=== PATIENT | male | born 1995 | race Caucasian/White ===

== ENCOUNTER 2017-11-03 10:11 | Inpatient (IN) | payer OTHER ==
[~2017-11-03] VITALS: Ht 180.3 cm; Wt 74.8 kg
--- NOTE | 2017-11-03 22:00 | NUR ---
Pre- Assessment Patient met in intake office, he is a 22 yr old male who has been admitted to [facility] for a medically supervised withdrawal from ETOH ( beer), benzodiazepines ( Klonopin) and Opiates ( Suboxone). 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 Vital Signs: BP 128/66, HR 88, RR 16, 02 Sats 94%. Patient states he last had Alcohol on the plane - 2 cocktails approx 3 hours ago, Suboxone 8mg SL this AM 11/03/17 and Klonopin 4mg PO this am 11/03/17. he states he also smoked 5 bowls of Marijuana this AM. patient states he is not yet in withdrawal from Suboxone but is starting to feel withdrawal symptoms from the ETOH and Benzodiazepines, CIWA 18. Patient educated on policy of controlled medications and that if he brought any they will be confiscated, patient understood and agreed. patient will be admitted to the unit and assessment will continue when he is on the floor, room 316 under the care of Dr Saldana.
--- NOTE | 2017-11-03 22:35 | NUR ---
PRN Zofran and Maalox Zofran 4mg SL given for N/V Maalox 30cc PO given for Dyspepsia
[2017-11-03] MEDS ORDERED: BREX3TAB PO (22:50)
[2017-11-03] MEDS ORDERED: BUPR1TAB40 SL (22:50)
[2017-11-03] MEDS ORDERED: PROP80CA PO (22:50)
[2017-11-03] MEDS ORDERED: ALBU8.5H8 IH (22:50)
[2017-11-03] MEDS ORDERED: CLON1TAB5 PO (22:50)
[2017-11-03] MEDS ORDERED: diphenhydrAMINE 50 MG CAPSULE PO PRN (23:00)
[2017-11-03] MEDS ORDERED: LORAZEPAM 1 MG TABLET PO PRN ×2 (23:00)
[2017-11-03] MEDS ORDERED: THIAMINE HCL 200 MG/2 ML VIAL IM ONE (23:00)
[2017-11-03] MEDS ORDERED: ONDANSETRON ODT 4 MG TAB.RAPDIS SL PRN (23:00)
[2017-11-03] MEDS ORDERED: MAG HYDROX/AL HYDROX/SIMETH 30 ML LIQUID UDC PO PRN (23:00)
[2017-11-03] MEDS ORDERED: MAGNESIUM HYDROXIDE 30 ML LIQUID UDC PO PRN (23:00)
[2017-11-03] MEDS ORDERED: LORAZEPAM 2 MG/1 ML VIAL IM PRN (23:00)
[2017-11-03] MEDS ORDERED: LOPERAMIDE HCL 2 MG CAPSULE PO PRN ×2 (23:00)
[2017-11-03] MEDS ORDERED: ONDANSETRON 4 MG/2 ML VIAL IM PRN (23:00)
[2017-11-03] MEDS ORDERED: MIRALAX 17 GM POWD.PACK PO PRN (23:00)
[2017-11-03] MEDS ORDERED: ACETAMINOPHEN 325 MG TABLET PO PRN (23:00)
[2017-11-03] MEDS ORDERED: BUPRENORPHINE HCL 2 MG TAB.SUBL SL PRN (23:00)
[2017-11-03] MEDS ORDERED: DICYCLOMINE HCL 20 MG TABLET PO PRN (23:00)
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
[2017-11-03] MEDS ORDERED: DIAZEPAM 10 MG TABLET PO PRN ×2 (23:30)
[2017-11-03] MEDS ORDERED: DIAZEPAM 5 MG TABLET PO PRN (23:30)
[2017-11-03 23:31] LABS: *AMPHETAMINE, URINE POSITIVE (NEGATIVE); *BARBITURATE, URINE NEGATIVE (NEGATIVE); *CANNABINOID, URINE POSITIVE (NEGATIVE); *COCCAINE, URINE NEGATIVE (NEGATIVE); *OPIATE, URINE NEGATIVE (NEGATIVE); *PHENCYCLIDINE SCREEN,URINE NEGATIVE (NEGATIVE)
--- NOTE | 2017-11-03 23:35 | NUR ---
PRN Reassess N/V Ceased, Zofran effective Dyspepsia resolved, Maalox effective
--- NOTE | 2017-11-03 23:40 | NUR ---
PRN Valium 20mg PO PRN given for CIWA 18 patients withdrawal symptoms include extreme restlessness, hyper sensitivity,fidgeting and agitation.
--- NOTE | 2017-11-03 23:40 | NUR ---
COWS 7/CIWA 18 Patient presents with increased anxiety, restlessness, bilateral hand tremors, he is hyper vigilant and antsy. Valium 20mg PO PRN given
[2017-11-04] VITALS: BP 127/80
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
--- NOTE | 2017-11-04 00:40 | NUR ---
PRN reassess Patient states that Valium 20mg PO had no effect on his anxiety, but patient is calm and cooperative but hyper focused on going out to smoke cigarettes, will continue to monitor. Addendum: 11/04/17 at 0220 by ERMELINDA WHITMORE RN 39- DENIS ( 18)
[2017-11-04 02:10] LABS: BASOPHILS # (AUTO) 0.1 K/uL (0.0-8.0); BASOPHILS % (AUTO) 0.5 % (0.0-2.0); EOSINOPHILS # (AUTO) 0.3 K/uL (0.0-0.7); EOSINOPHILS % (AUTO) 3.1 % (0.0-7.0); HEMATOCRIT 42.3 % (36.7-47.1); HEMOGLOBIN 14.2 g/dL (12.5-16.3); LYMPHOCYTES # (AUTO) 4.6 K/uL (20.0-40.0); LYMPHOCYTES % (AUTO) 42.5 % (20.5-51.5); MEAN CORPUSCULAR HEMOGLOBIN 30.6 uug (23.8-33.4); MEAN CORPUSCULAR HGB CONC 34 g/dL (32.5-36.3); MONOCYTES # (AUTO) 0.8 K/uL (2.0-10.0); MONOCYTES % (AUTO) 7.4 % (0.0-11.0); NEUTROPHILS # (AUTO) 5.1 K/uL (1.8-8.9); NEUTROPHILS % (AUTO) 46.5 % (38.5-71.5); PLATELET COUNT (AUTO) 234 K/uL (152-348); RED BLOOD CELL COUNT(AUTO) 4.65 MIL/uL (4.06-5.63); WHITE BLOOD COUNT (AUTO) 10.9 K/uL (3.6-10.2)
[2017-11-04 02:36] LABS: ETHANOL < 3 MG/DL (0-0)
[2017-11-04 02:41] LABS: ALANINE AMINOTRANSFERASE 28 U/L (16-63); ALKALINE PHOSPHATASE 80 U/L (50-136); AMYLASE 65 U/L (25-115); ASPARTATE AMINOTRANSFERASE 21 U/L (15-37); BILIRUBIN,TOTAL 0.4 mg/dL (0.2-1.0); CARBON DIOXIDE 27 mmol/L (21-32); CHLORIDE 101 mmol/L (98-107); CREATININE 0.8 mg/dL (0.6-1.3); GLUCOSE 108 mg/dL (74-106); LIPASE 90 U/L (73-393); MAGNESIUM 1.9 mg/dL (1.8-2.4); POTASSIUM 3.7 mmol/L (3.5-5.1); TOTAL PROTEIN, SERUM 7.7 g/dL (6.4-8.2); UREA NITROGEN, BLOOD 11 mg/dL (7-18)
[2017-11-04 02:56] LABS: THYROID STIMULATING HORMONE 4.107 mIU/mL (0.358-3.740)
--- NOTE | 2017-11-04 04:00 | NUR ---
COWS/CIWA Deferred due to sleep VS refused due to patient request
--- NOTE | 2017-11-04 06:55 | NUR ---
End of shift : Patient is a 22 yr old male who was admitted to [facility] on 11/03/17 for a medically supervised withdrawal from ETOH ( Beer), Benzos ( Klonopin) and Opiates ( Suboxone) ( he also states he used methamphetamines and Marijuana) UDS positive for Amphetamines and Cannaboids. He will start a 5 day Subutex and 5 day Phenobarbital taper today. PRN medications given on PM shift : Maalox, Zofran and Valium. Withdrawal symptoms include N/V, restlessness, loose thoughts, increased anxiety , gross bilateral hand tremors and dyspepsia, He had a fluid intake of 355ml, 2 voids and 0 BM, his last COWS was 7 @ 0000 and CIWA 16 @ 0100, he slept for 4 hours , Continue to follow MD plan of care and offer support and encouragement as needed. Endorsed to day shift.
[2017-11-04] MEDS ORDERED: 6 DAY PHENOBARBITAL TAPER -SERENITY PROTOCOL PO PRN (07:15)
--- NOTE | 2017-11-04 07:30 | NUR ---
START OF SHIFT NOTE Received report from night nurse, 22 year old male admitted for ETOH/Benzo/ withdrawal and patient schedule to start 5 days phenobarbital/Subutex taper. Per endorsement patient received PRN Valium, Maalox, Zofran, slept for 4 hours and last CIWA-16/CIWA-7. Received patient alert awake oriented x4, anxious, agitated, restless, fatigue, nausea, chills, bilateral hand tremors noted. Patient due for schedule medications. Breathing normal no SOB noted. Respiration even non labored. All safety measures in place call light within reach. Will cont to monitor.
[2017-11-04] MEDS ORDERED: 5 DAY TAPER BUPRENORPHINE -SERENITY PROTOCOL SL PRN (07:45)
[2017-11-04 08:00] VITALS: BP 111/68
[2017-11-04] MEDS: THIAMINE HCL 100 MG TABLET PO SCH (08:39)
[2017-11-04] MEDS: MULTIVITAMINS,THERAPEUTIC TABLET PO SCH (08:40)
[2017-11-04] MEDS: FOLIC ACID 1 MG TABLET PO SCH (08:40)
[2017-11-04] MEDS ORDERED: TUBERCULIN,PURIF.PROT.DERIV. 5 TU/0.1 ML TEST ID ONE (09:00)
[2017-11-04] MEDS: PHENOBARBITAL 60 MG TABLET PO SCH ×3 (09:40→20:45)
[2017-11-04] MEDS: BUPRENORPHINE HCL 2 MG TAB.SUBL SL SCH ×4 (09:40→20:46)
--- NOTE | 2017-11-04 09:40 | NUR ---
CIWA/COWS ASSESSMENT CIWA-13, COWS-13, patient presented with labile facial expression, anxiety, agitation, fatigue, restless, chills, sweats, runny nose, nausea, light headed, bilateral hand tremors noted. Patient was given his scheduled medications.
[2017-11-04 12:00] VITALS: BP 126/60
--- NOTE | 2017-11-04 12:29 | NUR ---
CIWA/COWS ASSESSMENT CIWA-12, COWS-11, patient is sitting in his room stated that he is feeling tired. Patient presented with flushed and sad facial expression, runny nose, anxious, restless, fatigue, nausea, irritable, bilateral hand tremors. patient received scheduled Subutex and due for schedule phenobarbital. All safety measures in place.
--- NOTE | 2017-11-04 13:46 | NUR ---
Client was prompted to attend group therapy.
[2017-11-04 16:00] VITALS: BP 123/67
--- NOTE | 2017-11-04 16:42 | NUR ---
CIWA/COWS ASSESSMENT CIWA-13, COWS-12, patient continues exhibited with sad facial expression, chills, mild body aches, anxious, agitated, restless, fatigue, nausea, irritable, bilateral hand tremors. All safety measures in place.
--- NOTE | 2017-11-04 19:05 | NUR ---
END OF SHIFT NOTE Gave report to night nurse, patient started on Subutex and Phenobarbital taper tolerating well. Patient Presented with anxiety, restless, agitation, anhedonia, flushed face, body aches, nausea, sad facial expression, patient received scheduled medication no PRN were given during shift. Patient was seen by psychiatrist with new order to continues home medications tonight, patient aware. Patient attended groups activities interacting with peers. Patient has good appetite. All safety measures in place. patient endorse to night nurse in stable condition.
--- NOTE | 2017-11-04 19:30 | NUR ---
End of shift : Patient is a 22 yr old male who was admitted to [facility] on 11/03/17 for a medically supervised withdrawal from ETOH ( Beer), Benzos ( Klonopin) and Opiates ( Suboxone) ( he also states he used methamphetamines and Marijuana) He has started a 5 day Subutex and 5 day Phenobarbital taper today. No PRN medications given on day shift . Withdrawal symptoms include N/V, restlessness, loose thoughts, increased anxiety , gross bilateral hand tremors, his last COWS was 12 @ 1600 and WA 13 @ 1600,Continue to follow MD plan of care and offer support and encouragement as needed. Addendum: 11/04/17 at 2014 by ERMELINDA WHITMORE RN Correction: * START of shift note
[2017-11-04 20:00] VITALS: BP 120/77
--- NOTE | 2017-11-04 20:37 | NUR ---
COWS 13/CIWA 15 Patient's withdrawal symptoms present as increased anxiety/Irritability, difficulty thinking clearly, nervousness, worried expression and restlessness. Scheduled 60mg PO Phenobarbital, 4mg SL Subutex and 3mg Rexulti PO
[2017-11-05] VITALS: BP 124/74
--- NOTE | 2017-11-05 | NUR ---
COWS 11/ CIWA 14 Patient presents with restlessness, anxiety, nervousness , diaphoresis and chills.
--- NOTE | 2017-11-05 04:00 | NUR ---
COWS/CIWA Deferred due to sleep. VS refused per patient request to sleep through the night, breathing even and unlabored, RR 14
--- NOTE | 2017-11-05 06:45 | NUR ---
End of shift : Patient is a 22 yr old male who was admitted to [facility] on 11/03/17 for a medically supervised withdrawal from ETOH ( Beer), Benzos ( Klonopin) and Opiates ( Suboxone) ( he also states he used methamphetamines and Marijuana). He has been placed on a 5 day Subutex and 5 day Phenobarbital taper and today is day 2. NO PRN medications were required or requested on this shift. Withdrawal symptoms include restlessness, loose thoughts, increased anxiety , gross bilateral hand tremors and agitation, He had a fluid intake of 1355 ml, 1 voids and 0 BM, his last COWS was 11 @ 0000 and CIWA 14 @ 0000, he slept for 5 hours , Continue to follow MD plan of care and offer support and encouragement as needed. Endorsed to day shift.
[2017-11-05 08:00] VITALS: BP 100/65
--- NOTE | 2017-11-05 08:05 | NUR ---
START OF SHIFT: Receive Pt A/O X 4. Tremors to BUE noted. He presents with anxious mood and congruent affect. He reports anxiety,restlessness,sweats and intermittent chills. He also reports body aches. Pheno/Subutex taper in progress top manage s/s of w/d. CI 10. COWS 14. He reports sleeping fairly with a fair appetite. Encouraged increased fluids to assist in facilitating detox process. Encouraged group attendance to improve coping skills and prevent relapse. Will continue to monitor and offer support. Addendum: 11/05/17 at 0846 by YANA DUBOIS RN CORRECTION: COWS
[2017-11-05 08:09] LABS: EOSINOPHILS # (AUTO) 0.4 K/uL (0.0-0.7); HEMOGLOBIN 14.9 g/dL (12.5-16.3); LYMPHOCYTES # (AUTO) 3.6 K/uL (20.0-40.0); MONOCYTES # (AUTO) 0.5 K/uL (2.0-10.0)
[2017-11-05 08:16] LABS: BASOPHILS % (AUTO) 0.5 % (0.0-2.0); EOSINOPHILS % (AUTO) 5.2 % (0.0-7.0); HEMATOCRIT 44.9 % (36.7-47.1); LYMPHOCYTES % (AUTO) 49.5 % (20.5-51.5); MEAN CORPUSCULAR HEMOGLOBIN 30.3 uug (23.8-33.4); MEAN CORPUSCULAR HGB CONC 33 g/dL (32.5-36.3); MEAN CORPUSCULAR VOLUME 91.4 fL (73.0-96.2); MONOCYTES % (AUTO) 6.9 % (0.0-11.0); NEUTROPHILS # (AUTO) 2.8 K/uL (1.8-8.9); NEUTROPHILS % (AUTO) 37.9 % (38.5-71.5); PLATELET COUNT (AUTO) 216 K/uL (152-348); RED BLOOD CELL COUNT(AUTO) 4.91 MIL/uL (4.06-5.63)
[2017-11-05 08:19] LABS: WHITE BLOOD COUNT (AUTO) 7.3 K/uL (3.6-10.2)
[2017-11-05] MEDS: PHENOBARBITAL 60 MG TABLET PO SCH ×4 (08:51→21:53)
[2017-11-05] MEDS: BUPRENORPHINE HCL 2 MG TAB.SUBL SL SCH ×3 (08:52→21:55)
[2017-11-05] MEDS: MULTIVITAMINS,THERAPEUTIC TABLET PO SCH (08:52)
[2017-11-05] MEDS: THIAMINE HCL 100 MG TABLET PO SCH (08:52)
[2017-11-05] MEDS: FOLIC ACID 1 MG TABLET PO SCH (08:52)
[2017-11-05 10:56] LABS: HEPATITIS B SURFACE AG Negative (Negative)
[2017-11-05 12:00] VITALS: BP 118/62
--- NOTE | 2017-11-05 12:20 | NUR ---
COWS 12 CIWA 14. He c/o anxiety,body aches,restlessness,sweats,tremors chills and irritability.
[2017-11-05 16:00] VITALS: BP 116/65
--- NOTE | 2017-11-05 18:50 | NUR ---
END OF SHIFT: Pt continues on Pheno/Sub taper to manage s/s of w/d which include anxiety,restlessness,sweats ,chills and irritability.COWS 9 CIWA 10. He stayed in bed and slept on and off most of shift. He states the detox meds are effective. No PRNS given. Pt was compliant with increased fluids and stated he would try and attend groups tomorrow when he feels better.
[2017-11-05 20:00] VITALS: BP 103/66
--- NOTE | 2017-11-05 20:00 | NUR ---
CIWA and COWS Assessment Patient was presenting with body aches, anxiety and sweats and chills. Patients CIWA 10 and COWS 8. Patient did not want any PRN medications. Patient verbalized understanding of reporting signs and symptoms of withdrawal. Respirations are even and unlabored. Safety measures in place, bed locked in low position, side rails up x2, and call light within reach. Will continue to monitor. Addendum: 11/06/17 at 0743 by DAMIEN JASSO RN Correction:Double charting.
--- NOTE | 2017-11-05 20:00 | NUR ---
Start of shift Patient is a 22 year old male patient admitted on 11/03/2017 for medically supervision of ETOH, Benzos and opiates withdrawal. Patients last COWS=9 and CIWA=10. Patient is on a 5 day Subutex and 5 day Phenobarbital taper. Per endorsement patient did not have any PRN medications. Patient is on fall and seizure precautions. Upon rounds patient was noted in room lying in bed. Reviewed 2100 medications with patient and he verbalized understanding. Patient presents depressed, withdrawal, disheveled, body aches in joints, anxiety and agitation. Respirations are even and unlabored. Patient denies any pain. Safety measures in place, bed locked in low position, side rails up x2, and call light within reach. Will continue to monitor.
[2017-11-06] VITALS: BP 103/66
--- NOTE | 2017-11-06 | NUR ---
CIWA and COWS Deferred Patient was noted in bed resting with eyes closed, breathing even and unlabored. Per protocol COWS and CIWA is to be assessed while awake. Safety measures in place, bed locked in low position, side rails up x2, and call light within reach. Will continue to monitor.
[2017-11-06 04:00] VITALS: BP 109/78
[2017-11-06 04:08] LABS: TRIIODOTHYRONINE, FREE 4.9 pg/mL (2.0-4.4)
--- NOTE | 2017-11-06 07:24 | NUR ---
End of shift Patient is a 22 year old male patient admitted on 11/03/2017 for medically supervision of ETOH, Benzos and opiates withdrawal. Patients last COWS=8 and CIWA=10. Patient is on a 5 day Subutex and 5 day Phenobarbital taper. Patient did not have any PRN medications during this shift. Patient is on fall and seizure precautions. Patient slept for 11 hours and had a total intake of 1,291 ml. Patient voided x3 and had no bowel movements. Respirations are even and unlabored. Safety measures in place, bed locked in low position, side rails up x2, and call light within reach. Will endorse to day shift
[2017-11-06 08:00] VITALS: BP 104/54
--- NOTE | 2017-11-06 08:00 | NUR ---
Start of Shift Notes/COWS/CIWA Assessment: Endorsement received from night nurse. Patient is a 22 year old male admitted for BZO/ETOH and opiate withdrawal who was placed on a 5-day Subutex and 5-day Phenobarbital taper as ordered. No adverse reactions noted. Per night report, patient was not given any PRNs. Slept for 11 hours. Last COWS 10/CIWA 8. Upon assessment, patient was received in his room. COWS 14/CIWA 16, he is noted with gross tremors, increased anxiety, agitation, intermittent perspiration and stuffy nose. Patient appears disheveled, and odorous. Noted with poor regards to hygiene, garbage around the room, and clothes thrown on the floor and at bedside. Encouraged to maintain personal hygiene and space. Educated patient on his current plan of care for the day and his medication regimen. Encouraged oral fluid intake and encouraged group participation to learn new skills to prevent relapse. Will continue to monitor and provide support.
[2017-11-06] MEDS: MULTIVITAMINS,THERAPEUTIC TABLET PO SCH (08:48)
[2017-11-06] MEDS: FOLIC ACID 1 MG TABLET PO SCH (08:49)
[2017-11-06] MEDS: THIAMINE HCL 100 MG TABLET PO SCH (08:49)
[2017-11-06] MEDS: PHENOBARBITAL 60 MG TABLET PO SCH ×3 (08:49→20:36)
[2017-11-06] MEDS ORDERED: BUPRENORPHINE HCL 2 MG TAB.SUBL SL SCH (09:00)
[2017-11-06 12:00] VITALS: BP 113/71
--- NOTE | 2017-11-06 12:19 | NUR ---
COWS/CIWA Assessment: COWS 12/CIWA 13, patient continues to present with gross tremors, restlesness, facial flushing, intermittent perspiration, increased anxiety and agitation. Worried facial expression noted and flat affect. Will continue to medicate patient as ordered and offer support.
[2017-11-06] MEDS: BUPRENORPHINE HCL 2 MG TAB.SUBL SL SCH ×2 (14:03→20:36)
--- NOTE | 2017-11-06 14:10 | NUR ---
Client was prompted to attend group therapy.
[2017-11-06 16:00] VITALS: BP 102/60
--- NOTE | 2017-11-06 16:05 | NUR ---
COWS/CIWA Assessment: COWS 10/CIWA 11, patient continues to present with s/s of withdrawal m/b gross tremors, increased agitation and anxiety, intermittent perspiration, tachycardia, restlessness and generalized discomfort. Will continue with current detox meds as ordered.
[2017-11-06] MEDS: CLONIDINE HCL 0.1 MG TABLET PO PRN (18:50)
--- NOTE | 2017-11-06 18:50 | NUR ---
Clonidine 0.1mg PO given: Patient verbalize "I feel like im on the edge." Affect is flat but appears anxious. Redirected patient with non-pharmacological interventions with no help. Medicated patient with Clonidine 0.1mg PO as ordered. Will monitor for effectiveness.
--- NOTE | 2017-11-06 19:15 | NUR ---
End of Shift Notes: Patient continues to be on 5-day Subutex and 5-day Phenobarbital taper as ordered. No adverse reactions noted. VS monitored closely. No significant abnormalities noted. Withdrawal symptoms were closely monitored. Initial COWS 15/CIWA 16, patient presented with flat affect, worried facial expression, anxiety, agitation, intermittent perspiration, anhedonia and generalized discomfort. Last COWS 10/CIWA 11. Patient verbalizes that Subutex and Phenobarbital has been effective in reducing his withdrawal symptoms. PRN Clonidine 0.1mg PO given at 1820 with results pending. Able to participate in group and activities despite his withdrawal symptoms. All needs met and attended. Will continue to monitor closely.
--- NOTE | 2017-11-06 19:44 | NUR ---
START OF SHIFT NOTE Rcvd report form outgoing nurse. Pt is a 22 y/o male A/O to person, place, time, and purpose. Pt was admitted for medically supervised withdrawal from ETOH, Benzodiazepines, and opiates. Pt is on day 3 of a 5 day Subutex and Phenobarbital taper. Pt has been presenting w/ anxiety, body aches, light sensitivity, headaches, hot flashes, chills, sweats, tremors, depressed and withdrawn mood, and a flat affect. PRN Clonidine was given for anxiety and noted effective by outgoing nurse. Last CIWA 11 and COWS 10 @ 1600. Call light is within reach. Pt was educated on keeping an open line of communication. Pt will continue to be monitored and needs met.
--- NOTE | 2017-11-06 19:50 | NUR ---
PRN CLONIDINE REASSESSMENT Pt is in bed. Pt states relief from anxiety. Will continue to monitor.
[2017-11-06 20:08] VITALS: BP 114/57
--- NOTE | 2017-11-06 20:08 | NUR ---
CIWA AND COWS ASSESSMENT CIWA 11 and COWS 10. Pt has been presenting w/ anxiety, body aches, light sensitivity, headaches, hot flashes, chills, sweats, tremors, depressed and withdrawn mood, and a flat affect. V/S: T:98.1, P:93, RR:16, SPO2:97, BP:114/51.
--- NOTE | 2017-11-07 00:11 | NUR ---
CIWA AND COWS DEFERRED. V/S REFUSED Pt was in bed w/ his eyes closed. Pt's respirations are unlabored and even.
--- NOTE | 2017-11-07 04:04 | NUR ---
CIWA AND COWS DEFERRED. V/S REFUSED Pt is in bed w/ his eyes closed. Pt's respirations are unlabored and even.
--- NOTE | 2017-11-07 07:09 | NUR ---
END OF SHIFT NOTE Endorsed pt to oncoming nurse. Pt is a 22 y/o male A/O to person, place, time, and purpose. Pt was admitted for medically supervised withdrawal from ETOH, Benzodiazepines, and opiates. Pt completed day 3 of a 5 day Subutex and Phenobarbital taper. Pt continues presenting w/ anxiety, body aches, light sensitivity, headaches, hot flashes, chills, sweats, tremors, depressed and withdrawn mood, and a flat affect. Pt denies any S/I or H/I. No PRN medication was given during current shift. Pts fluid intake was 80ml and he slept for 11hrs. Last CIWA 11 and COWS 10 @ 1999. Call light is within reach. Pt was educated on keeping an open line of communication.
--- NOTE | 2017-11-07 07:30 | NUR ---
Start of shift : Patient is a 22 yr old male who was admitted to [facility] on 11/03/17 for a medically supervised withdrawal from ETOH ( Beer), Benzos ( Klonopin) and Opiates ( Suboxone) ( he also states he used methamphetamines and Marijuana) He has been placed on a 5 day Subutex and 5 day Phenobarbital taper and today is day 4. No PRN medications given on night clerk , his last COWS was 10 and CIWA 11 @ 2000,he slept for 11 hours. currently he is asleep in bed, breathing even and unlabored. Continue to follow MD plan of care and offer support and encouragement as needed.
[2017-11-07 08:00] VITALS: BP 103/57
--- NOTE | 2017-11-07 08:00 | NUR ---
COWS 10/ CIWA 13 Withdrawal symptoms include lethargy, runny nose, teary eyes, increased anxiety, anhedonia, he has a flat sad affect. Scheduled Phenobarbital and Subutex to be given
[2017-11-07] MEDS: PHENOBARBITAL 60 MG TABLET PO SCH ×2 (08:35→20:42)
[2017-11-07] MEDS: BUPRENORPHINE HCL 2 MG TAB.SUBL SL SCH ×3 (08:35→20:42)
[2017-11-07] MEDS: THIAMINE HCL 100 MG TABLET PO SCH (08:35)
[2017-11-07] MEDS: MULTIVITAMINS,THERAPEUTIC TABLET PO SCH (08:35)
[2017-11-07] MEDS: FOLIC ACID 1 MG TABLET PO SCH (08:35)
[2017-11-07] MEDS: IBUPROFEN 400 MG TABLET PO PRN ×2 (11:41→20:42)
[2017-11-07] MEDS: HYDROXYZINE PAMOATE 25 MG CAPSULE PO PRN (11:42)
[2017-11-07] MEDS: METHOCARBAMOL 750 MG TABLET PO PRN ×2 (11:42→20:42)
--- NOTE | 2017-11-07 11:42 | NUR ---
PRN Vistaril 50mg PO PRN Robaxin 750mg Po PRN Motrin 400mg PO PRN Given for complaints of leg aches/muscle spasms and increased anxiety
[2017-11-07 12:00] VITALS: BP 146/83
--- NOTE | 2017-11-07 12:00 | NUR ---
COWS 10/ CIWA 14 Withdrawal symptoms include lethargy, runny nose, teary eyes, increased anxiety,leg aches and muscle spasms, anhedonia, he has a flat sad affect. PRN Vistaril, Clonidine and Motrin were given @ 1147
--- NOTE | 2017-11-07 12:23 | NUR ---
Therapist prompted client to attend all group therapy sessions.
--- NOTE | 2017-11-07 12:42 | NUR ---
PRN Reassess Patient states that PRN medication was effective for his body aches
[2017-11-07 16:00] VITALS: BP 100/60
--- NOTE | 2017-11-07 16:00 | NUR ---
COWS 10/ CIWA 14 Withdrawal symptoms include lethargy, runny nose, teary eyes, increased anxiety,leg aches and muscle spasms, anhedonia, he has a flat sad affect.
--- NOTE | 2017-11-07 19:30 | NUR ---
Start of Shift Note Received 22 year old admitted to [facility] for medically supervised withdrawal from ETOH, Benzodiazepines, and Opiates on 11/03/17. Currently on day 4 of a 5 day Subutex and 5 day Phenobarbital taper. Per endorsement, pt received PRN Vistaril. Robaxin, and Motrin. Last COWS 10 and CIWA 14 @1600. Upon rounds Pt awake, alert, flushed, anxious, agitated, flat affect, isolative, mild tremors noted. Safety measures in use and will continue to monitor.
--- NOTE | 2017-11-07 19:51 | NUR ---
End of Shift: Patient is a 22 yr [facility] male [facility] a medically supervised withdrawal from ETOH ( beer), Benzodiazepines ( Klonopin) and Opiates. He continue on a 5 day Phenobarbital 5 day Subutex taper and this is day 4. PRN medications given on this shift : Vistaril, Robaxin and Motrin. His withdrawal symptoms include Generalized body aches and muscle spasms, restlessness, increased anxiety and irritability, he has a sad depressed affect. He had a fluid intake of 2075 ML, 3Voids and 1BM, last COWS was 10 @ 1600 and CIWA 14 @ 1600. He has attended groups today and is interacting with his peers. Continue to follow MD plan of care and offer support and encouragement. Endorsed to material handler 2nd shift nurse.
[2017-11-07 20:11] VITALS: BP 101/70
--- NOTE | 2017-11-07 20:42 | NUR ---
PRN Motrin/ PRN Robaxin Pt reports muscle spasms and generalized pain 5/10. Medicated with Motrin and Robaxin per MD oder. Will monitor effect.
--- NOTE | 2017-11-07 21:42 | NUR ---
PRN Motrin/Robaxin Reassess Medication effective. Pt laying in bed, eyes closed, and resting. Respirations even and unlabored. Continue with safety measures. Continue to monitor
--- NOTE | 2017-11-08 | NUR ---
Vitals Refused Patient is noted in bed sleeping. Breathing even and non labored. Patient noted to refuse vitals. No signs of restlessness or facial grimacing noted. COWS and CIWA not able to be completed as per order.
--- NOTE | 2017-11-08 04:00 | NUR ---
Vitals Refused Patient is noted in bed sleeping. Breathing even and non labored. No signs of restlessness or discomfort noted. CIWA and COWS not able to be completed as per order. Will continue to monitor.
--- NOTE | 2017-11-08 06:39 | NUR ---
End of Shift Note Pt is a 22 year old admitted to [facility] for medically supervised withdrawal from ETOH, Benzodiazepines, and Opiates on 11/03/17. Currently on day 5 of a 5 day Subutex and 5 day Phenobarbital taper. Pt complained of generalized pain 5/10 and spasms. PRN Motrin and Robaxin given per MD order with positive effect. COWS 11 CIWA 13 @ 1999. Intake 1210, voided X 2, BM X 0, Slept X 7 hours. Safety measures in use. Endorsed care to day shift.
[2017-11-08 08:00] VITALS: BP 118/64
--- NOTE | 2017-11-08 08:00 | NUR ---
Start of Shift Notes/COWS/CIWA Assessment: Received endorsement from night nurse. Patient is a 22 year old male admitted for ETOH/BZO and opiate withdrawal who was placed on a 5-day Subutex and 5-day Phenobarbital taper as ordered. Patient will be on his 5th day today of the taper. Per night report, patient's last COWS 11/CIWA 13. Slept for a total of 7 hours. PRN Motrin and Robaxin given as ordered. Patient was received in his room. Appears disheveled. Unshaven. Room is odorous. Garbage noted around the room. Empty water bottles scattered on the floor and at bedside table. Patient is malodorous and with noted with poor regards to hygiene. Affect is flat with worried facial expression, poor eye contact, and complains of increased anxiety, nervousness and agitation. He also verbalizes tolerable bone/joint aching of 3/10, and intermittent episodes of perspiration. COWS 11/CIWA 13 upon this assessment. Educated patient on his current plan of care for the day and his medication regimen. Encouraged oral fluid intake and encouraged group participation to learn new skills to prevent relapse. All needs met and attended. Call light in reach. Will continue to monitor and provide support.
[2017-11-08] MEDS: THIAMINE HCL 100 MG TABLET PO SCH (08:42)
[2017-11-08] MEDS: FOLIC ACID 1 MG TABLET PO SCH (08:42)
[2017-11-08] MEDS: MULTIVITAMINS,THERAPEUTIC TABLET PO SCH (08:42)
[2017-11-08] MEDS ORDERED: BUPRENORPHINE HCL 2 MG TAB.SUBL SL SCH (09:00)
[2017-11-08] MEDS ORDERED: PHENOBARBITAL 60 MG TABLET PO SCH (09:00)
[2017-11-08 12:00] VITALS: BP 125/87
[2017-11-08] MEDS: IBUPROFEN 400 MG TABLET PO PRN ×2 (13:07→21:33)
--- NOTE | 2017-11-08 13:07 | NUR ---
Ibuprofen 400 mg PO given: Patient complained of 3 out of 10 BLE pain related to withdrawals. Non-pharmacological interventions provided but ineffective. Medicated patient with Ibuprofen 400 mg PO as ordered. Will monitor for effectiveness.
--- NOTE | 2017-11-08 14:07 | NUR ---
Re-assessment: Ibuprofen 400 mg Patient verbalizes relief from BLE pain related to withdrawal. He rates his pain as a 2 out of 10 at this time. PRN Ibuprofen 400 mg PO was effective.
[2017-11-08] MEDS ORDERED: METH-406 PO (15:01)
[2017-11-08] MEDS: METHOCARBAMOL 750 MG TABLET PO PRN ×2 (15:07→21:28)
--- NOTE | 2017-11-08 15:16 | NUR ---
PRN ADMINISTRATION: pt with complaints of muscle aches and pain, pain level 8 PRN robaxin was administered will re-assess effectiveness of medication
[2017-11-08 16:00] VITALS: BP 116/80
--- NOTE | 2017-11-08 16:07 | NUR ---
Re-asessment: Robaxin Patient verbalizes relief from muscle aches and pains and rates his pain as a 3 out of 10 at this time. PRN Robaxin effective.
[2017-11-08] MEDS: HYDROXYZINE PAMOATE 25 MG CAPSULE PO PRN (18:17)
--- NOTE | 2017-11-08 18:17 | NUR ---
Vistaril 50 mg PO given: Patient verbalizes anxiety due to the discharge process. He states "I'm really anxious about the discharge process tomorrow." He is noted with sweaty palms and restless legs while sitting. Non-pharmacological interventions provided but ineffective. Medicated patient with Vistaril 50 mg PO as ordered. Will monitor for effectiveness.
--- NOTE | 2017-11-08 19:06 | NUR ---
End of Shift Notes: Patient completed his 5-day Phenobarbital and 5-day Subutex taper as ordered to manage symptoms related to BZO and opiate withdrawal. VS monitored closely. No significant abnormalities noted. Withdrawal symptoms were closely monitored. Initial COWS 11/CIWA 13, patient presented with increased anxiety, agitation, gross tremors, difficulty concentrating, malaise, fatigue, intermittent perspiration, myalgia and anhedonia. Medicated patient with Motrin 400 mg PO as ordered at 1407 with help. Last COWS 6/CIWA 9. Patient verbalizes that Subutex and Phenobarbital has been effective in reducing his withdrawal symptoms. At 1817, patient was given Vistaril 50 mg PO for anxiety with help. Appetite fair. Encouraged to attend group and activities for social interaction. All needs met and attended. Will continue to monitor closely.
--- NOTE | 2017-11-08 19:15 | NUR ---
Start of Shift Note: Patient is a 22 y.o male admitted on 11/03/17 for ETOH, Klonopin & Suboxone use. He appears disheveled, unkempt and malodorous. Pt has a flat affect, appears guarded and depressed mood. Pt presents with anxiety, agitation, mild headache & generalized body aches. No N/V/D noted. Denies hallucinations. Pt completed his Subutex and Phenobarbital taper and is scheduled to be discharge tomorrow. Last COWS 6 CIWA 9. Pt received PRN Robaxin, Motrin & Vistaril during day shift. Pt stable at this time. Explained to patient current plan of care of the night and medication regimen. Both side rails up. Bed in the lowest position. Call light within pts reach. Will continue to monitor patient.
[2017-11-08 20:00] VITALS: BP 125/80
[2017-11-08] MEDS: CLONIDINE HCL 0.1 MG TABLET PO PRN (21:33)
--- NOTE | 2017-11-08 21:33 | NUR ---
PRn Clonidine/Motrin/Robaxin Patient is noted with anxious & worried mood. He complains of anxiety, restlessness, generalized muscle aches and mild headache. PRN Clonidine, Motrin and Robaxin administered as ordered. will continue to monitor patient.
--- NOTE | 2017-11-08 22:33 | NUR ---
PRN Reassessment Patient verbalized medication to be effective. Pt verbalized relief from headache, decreased in body aches and anxiety. Patient in bed with no apparent distress. will continue to monitor patient.
--- NOTE | 2017-11-09 | NUR ---
Vitals/Ciwa/Cows deferred Patient refused vitals at this time. Pt in bed with eyes close. Breathing even and unlabored. No facial grimacing noted. CIWA and COWS deferred and will reassess patient if awake.
--- NOTE | 2017-11-09 07:01 | NUR ---
End of Shift Note: Patient is a 22 y.o male admitted on 11/03/17 for ETOH, Klonopin & Suboxone use. Pt presents with anxiety, agitation, mild headache & generalized body aches. No N/V/D noted. Pt completed his Subutex and Phenobarbital taper and is scheduled to be discharge today. Pt received PRN Clonidine, Motrin & Robaxin and all were effective. Pt remained stable and vitals noted WNL. All due medications given and all needs attended. Pt slept for a total of 7 hours. Fluid intake: 855 ml. Voided 1x with no BM noted. Safety measures in place. Will endorse pt to day shift nurse.
--- NOTE | 2017-11-09 07:30 | NUR ---
Start of Shift Patient is a 22 yr old male who was admitted to [facility] on 11/03/17 for a medically supervised withdrawal from ETOH ( Beer), Benzodiazepines ( Klonopin) and Opiates ( Suboxone), he has completed a 5 day Pheno/ 5 day Subutex taper and will be discharged this AM to " [facility]". PRN Clonidine, Motrin and Robaxin were given on PM shift, last COWS 5 and CIWA 9 and he slept for 7 hours, currently he is in bed asleep, breathing even and unlabored, side rails up x2, continue to follow MD plan for DC.
[2017-11-09 08:00] VITALS: BP 103/54
--- NOTE | 2017-11-09 08:00 | NUR ---
COWS 5 CIWA 10 Withdrawal symptoms present as increased anxiety, anhedonia, leg aches and restlessness Vistaril, Clonidine and Robaxin given
--- NOTE | 2017-11-09 08:30 | NUR ---
PRN Clonidine and Vistaril given for anxiety and agitation, nervous about leaving today Robaxin given for leg aches 05/29
[2017-11-09 08:31] VITALS: BP 103/54
[2017-11-09] MEDS: CLONIDINE HCL 0.1 MG TABLET PO PRN (08:31)
[2017-11-09] MEDS: THIAMINE HCL 100 MG TABLET PO SCH (08:31)
[2017-11-09] MEDS: HYDROXYZINE PAMOATE 25 MG CAPSULE PO PRN (08:31)
[2017-11-09] MEDS: FOLIC ACID 1 MG TABLET PO SCH (08:31)
[2017-11-09] MEDS: MULTIVITAMINS,THERAPEUTIC TABLET PO SCH (08:31)
[2017-11-09] MEDS: METHOCARBAMOL 750 MG TABLET PO PRN (09:07)
--- NOTE | 2017-11-09 09:30 | NUR ---
PRN Reassess Patient states anxiety has decreased, clonidine and Vistaril effective patient states leg aches are now 2/10, Robaxin effective
--- NOTE | 2017-11-09 09:41 | NUR ---
Discharge Note Patient discharged from the unit, all paperwork signed and dated, all personal belongings and prescriptions placed in zip tied bag. VS stable, states no SI/HI, Patient ambulated off the unit @ 0941 and was picked up by [facility] " [facility] " for transport to [facility]".
== END 2017-11-09 09:48 | DRG 895 ==
LOC: SRC 21:09
PROVIDERS: ADMIT Internal Medicine; ATTEND Internal Medicine
PROC: HZ2ZZZZ Detoxification Services for Substance Abuse Treatment (ICD-10-PCS; principal; 2017-11-03)
PROC: HZ41ZZZ Group Counseling for Substance Abuse Treatment, Behavioral (ICD-10-PCS; 2017-11-04)
PROC: HZ31ZZZ Individual Counseling for Substance Abuse Treatment, Behavioral (ICD-10-PCS; 2017-11-06)
DX: F10.230 Alcohol dependence with withdrawal, uncomplicated (principal); F15.229 Other stimulant dependence with intoxication, unspecified; F11.229 Opioid dependence with intoxication, unspecified; Y90.0 Blood alcohol level of less than 20 mg/100 ml; F13.230 Sedative, hypnotic or anxiolytic dependence with withdrawal, uncomplicated; F12.90 Cannabis use, unspecified, uncomplicated; F41.1 Generalized anxiety disorder; F42.9 Obsessive-compulsive disorder, unspecified; D72.829 Elevated white blood cell count, unspecified; F63.3 Trichotillomania; F31.9 Bipolar disorder, unspecified; F17.210 Nicotine dependence, cigarettes, uncomplicated; Z88.0 Allergy status to penicillin; J45.909 Unspecified asthma, uncomplicated; E73.9 Lactose intolerance, unspecified
CPT/HCPCS: 36415; 70030-TC; 80307; 83690; 83735; 84443; 84480; 84481; 85025; 86580; 86592; 86705; 86803; 87340; 87806; G0480; J3411; J8499; Q0162